=== PATIENT | female | born 1950 | race Two or more races ===

== ENCOUNTER 2018-11-21 08:18 | Outpatient (CLI) | payer OTHER | END 2018-11-21 08:31 | disposition home or self-care (01) | LOC: TOM 08:18 | DX: R93.3 Abnormal findings on diagnostic imaging of other parts of digestive tract (principal); Z86.010 Personal history of colon polyps; K56.50 Intestinal adhesions [bands], unspecified as to partial versus complete obstruction ==

== ENCOUNTER 2024-05-08 11:54 | Outpatient (CLI) | payer OTHER | END 2024-05-08 11:56 | disposition home or self-care (01) | LOC: TOM 11:54 | PROVIDERS: ATTEND Internal Medicine | DX: K56.50 Intestinal adhesions [bands], unspecified as to partial versus complete obstruction (principal); R09.02 Hypoxemia; Z86.010 Personal history of colon polyps ==